=== PATIENT | female | born 1980 | race African-American/Black ===

== ENCOUNTER 2017-05-16 10:49 | Emergency (ER) | payer OTHER ==
[2017-05-16 10:54] VITALS: PULSE 55; TEMP 98.1; BMI 25.0
[2017-05-16] MEDS ORDERED: METHOCARBAMOL 500 MG TABLET PO ONE (11:15)
[2017-05-16] MEDS ORDERED: KETOROLAC TROMETHAMINE 30 MG/1 ML VIAL IM ONE (11:15)
[2017-05-16] MEDS ORDERED: KETOROLAC TROMETHAMINE 30 MG/1 ML VIAL IVPUSH ONE (11:19)
[2017-05-16] MEDS ORDERED: SODIUM CHLORIDE 1,000 ML IV STA (11:20)
[2017-05-16] MEDS ORDERED: KETOROLAC TROMETHAMINE 30 MG/1 ML VIAL ONE (11:20)
[2017-05-16] MEDS ORDERED: METHOCARBAMOL 500 MG TABLET ONE (11:20)
--- NOTE | 2017-05-16 11:53 | PDOC ---
History of Present Illness - General History Source: Patient Exam Limitations: No Limitations - History of Present Illness Initial Comments: 05/16/17 11:57 The patient is a 37 year old female, with no significant past medical history who presents to the emergency department with lower back pain. Patient states she was at work and bent down to lift a box of iphones. As she stood back up, patient experienced sharp lower back pain, 10/10 in severity. Patient denies any weakness, numbness, tingling. Patient denied any bowel/urine incontinence. She denies chest pain, headache or dizziness. She denies fever, chills, abdominal pain, nausea, vomit, diarrhea or constipation. She denies dysuria, frequency, urgency or hematuria. <Candice Harrison - Last Filed: 05/16/17 11:57> - General History Source: Patient Exam Limitations: No Limitations <Vahid Jarrett - Last Filed: 05/16/17 16:07> - General Chief Complaint: Back Pain Stated Complaint: FALL/LOWER BACK PAIN Time Seen by Provider: 05/16/17 10:53 Past History <Candice Harrison - Last Filed: 05/16/17 11:57> - Past Medical History Other medical history: denies - Suicide/Smoking/Psychosocial Hx Smoking History: Never smoked Have you smoked in the past 12 months: No Hx Alcohol Use: No Drug/Substance Use Hx: No Substance Use Type: Marijuana <Vahid Jarrett - Last Filed: 05/16/17 16:07> - Past Medical History Allergies/Adverse Reactions: Allergies Allergy/AdvReac Type Severity Reaction Status Date / Time acetaminophen [From Percocet] Allergy Hives Verified 05/16/17 10:51 oxycodone HCl [From Percocet] Allergy Hives Verified 05/16/17 10:51 Home Medications: Ambulatory Orders Acetaminophen [Tylenol] 650 mg PO Q4H PRN #20 tablet 05/16/17 Diazepam [Valium] 5 mg PO DAILY PRN #7 tablet MDD 1 05/16/17 Lidocaine 5% Patch [Lidoderm Patch -] 1 patch TP DAILY PRN #7 patch 05/16/17 Methocarbamol [Robaxin -] 500 mg PO BID PRN #14 tablet 05/16/17 Naproxen [Naprosyn -] 500 mg PO BID PRN #14 tablet 05/16/17 Review of Systems - Review of Systems Able to Perform ROS?: Yes Comments:: 05/16/17 11:57 GENERAL/CONSTITUTIONAL: No fever or chills. No weakness. HEAD, EYES, EARS, NOSE AND THROAT: No change in vision. No ear pain or discharge. No sore throat. CARDIOVASCULAR: No chest pain or shortness of breath. RESPIRATORY: No cough, wheezing, or hemoptysis. GASTROINTESTINAL: No nausea, vomiting, diarrhea or constipation. GENITOURINARY: No dysuria, frequency, or change in urination. MUSCULOSKELETAL: No joint or muscle swelling or pain. No neck or back pain. + lower back pain SKIN: No rash NEUROLOGIC: No headache, vertigo, loss of consciousness, or change in strength/ sensation. ENDOCRINE: No increased thirst. No abnormal weight change. HEMATOLOGIC/LYMPHATIC: No anemia, easy bleeding, or history of blood clots. ALLERGIC/IMMUNOLOGIC: No hives or skin allergy. <Candice Harrison - Last Filed: 05/16/17 11:57> *Physical Exam - Vital Signs Last Vital Signs Temp Pulse Resp BP Pulse Ox 98.1 F 55 L 20 119/65 100 05/16/17 10:51 05/16/17 10:51 05/16/17 10:51 05/16/17 10:51 05/16/17 10:51 - Physical Exam Comments: 05/16/17 11:58 GENERAL: Awake, alert, and fully oriented, in no acute distress HEAD: No signs of trauma EYES: PERRLA, EOMI, sclera anicteric, conjunctiva clear ENT: Auricles normal inspection, hearing grossly normal, nares patent, oropharynx clear without exudates. Moist mucosa NECK: Normal ROM, supple, no lymphadenopathy, JVD, or masses LUNGS: Breath sounds equal, clear to auscultation bilaterally. No wheezes, and no crackles HEART: Regular rate and rhythm, normal S1 and S2, no murmurs, rubs or gallops ABDOMEN: Soft, nontender, normoactive bowel sounds. No guarding, no rebound. No masses EXTREMITIES: Normal range of motion, no edema. No clubbing or cyanosis. No cords, erythema, or tenderness. +Tenderness to L paraspinal muscle proximately around L5 S1. No bony deformities. NEUROLOGICAL: Cranial nerves II through XII grossly intact. Normal speech, normal gait. SKIN: Warm, Dry, normal turgor, no rashes or lesions noted. <Candice Harrison - Last Filed: 05/16/17 11:57> - Vital Signs Last Vital Signs Temp Pulse Resp BP Pulse Ox 98.1 F 55 L 20 119/65 100 05/16/17 10:51 05/16/17 10:51 05/16/17 10:51 05/16/17 10:51 05/16/17 10:51 <Vahid Jarrett - Last Filed: 05/16/17 16:07> ED Treatment Course - Medications Given in the ED: ED Medications Discontinued Medications Generic Name Dose Route Start Last Admin Trade Name Freq PRN Reason Stop Dose Admin Ketorolac Tromethamine 30 mg 05/16/17 11:15 05/16/17 11:55 Toradol Injection - IM 05/16/17 11:16 Not Given ONCE ONE Ketorolac Tromethamine 30 mg 05/16/17 11:19 05/16/17 11:29 Toradol Injection - IVPUSH 05/16/17 11:20 30 mg ONCE ONE Administration Methocarbamol 500 mg 05/16/17 11:15 05/16/17 11:28 Robaxin - PO 05/16/17 11:16 500 mg ONCE ONE Administration <Candice Harrison - Last Filed: 05/16/17 11:57> Medical Decision Making - Medical Decision Making 05/16/17 11:53 A portion of this note was documented by scribe services under my direction. I have reviewed the details of the note, within reason, and agree with the documentation with the following case summary and management plan written by me. Patient treated in the ED. Nursing notes are reviewed and incorporated into the medical decision-making. Vital signs reviewed. Peripheral IV access obtained by the nurse, laboratory studies are drawn and sent, reviewed and interpreted by myself. Vital Signs Temp Pulse Resp BP Pulse Ox 98.1 F 55 L 20 119/65 100 05/16/17 10:51 05/16/17 10:51 05/16/17 10:51 05/16/17 10:51 05/16/17 10:51 37-year-old female patient with no past medical history presents with lower back pain. The patient was working picking up a box weighing approximately 30- 40 pounds. She felt her lower back give out and she felt severe lower back pain. Denies urinary bowel incontinence. Denies numbness. Was called 911 patient came to the ED. The patient has no bony tenderness and no neurological deficits. She does have a pretty severely tender left paraspinal muscle tenderness suggestive of back spasm. We'll attempt to control pain and give muscle relaxants. Patient reports that she is not . 05/16/17 15:59 Lumbar X-ray reveals no acute findings. Pt given naproxen, tylenol, robaxin, and valium with improvement in symptoms. Again, I suspect that this is muscle spasm. Despite discomfort, pt is ambulatory. Will have patient go home with her friend and have her follow up with PMD Return precautions given. I discussed the physical exam findings, ancillary test results and final diagnoses with the patient. I answered all of the patient's questions. The patient was satisfied with the care received and felt comfortable with the discharge plan and treatment plan. The patient will call their primary care physician within 24 hours to arrange follow-up and will return to the Emergency Department with any new, persistant or worsening symptoms. <Vahid Jarrett - Last Filed: 05/16/17 16:07> *DC/Admit/Observation/Transfer - Attestations Scribe Attestion: 05/16/17 11:58 Documentation prepared by Candice Harrison, acting as medical staff coordinator for Vahid Jarrett MD <Candice Harrison - Last Filed: 05/16/17 11:57> - Discharge Dispostion Admit: No <Vahid Jarrett - Last Filed: 05/16/17 16:07> Diagnosis at time of Disposition: Back spasm - Discharge Dispostion Disposition: HOME Condition at time of disposition: Improved - Prescriptions Prescriptions: Lidocaine 5% Patch [Lidoderm Patch -] 1 patch TP DAILY PRN #7 patch PRN Reason: Back Pain Naproxen [Naprosyn -] 500 mg PO BID PRN #14 tablet PRN Reason: Back Pain Methocarbamol [Robaxin -] 500 mg PO BID PRN #14 tablet PRN Reason: Muscle Spasm Acetaminophen [Tylenol] 650 mg PO Q4H PRN #20 tablet PRN Reason: Pain Diazepam [Valium] 5 mg PO DAILY PRN #7 tablet MDD 1 PRN Reason: Back Spasm - Referrals Referrals: STAFF,NOT ON [Primary Care Provider] - - Patient Instructions Printed Discharge Instructions: DI for Back Spasm Additional Instructions: Your lumbar spine radiograph is negative for fractures. Please take the medications as prescribed. It may take several days before your symptoms improve. Follow up with your doctor. - Post Discharge Activity Forms/Work/School Notes: Back to Work
[2017-05-16 12:08] LABS: URINE APPEARANCE CLEAR; URINE BILIRUBIN NEGATIVE (NEGATIVE); URINE BLOOD NEGATIVE (NEGATIVE); URINE COLOR STRAW; URINE GLUCOSE (UA) NEGATIVE (NEGATIVE); URINE KETONE NEGATIVE (NEGATIVE); URINE LEUK ESTERASE NEGATIVE (NEGATIVE); URINE NITRITE NEGATIVE (NEGATIVE); URINE PROTEIN NEGATIVE (NEGATIVE); URINE UROBILINOGEN NEGATIVE mg/dL (0.2-1.0)
[2017-05-16] MEDS ORDERED: diazePAM 5 MG TABLET PO ONE (12:42)
[2017-05-16] MEDS ORDERED: diazePAM 5 MG TABLET ONE (13:07)
[2017-05-16] MEDS ORDERED: LIDOCAINE 5% TOPICAL PATCH TP ONE (15:12)
[2017-05-16] MEDS ORDERED: ACETAMINOPHEN 1000 MG/100 ML VIAL (NON FORMULARY) IVPB ONE (15:15)
[2017-05-16] MEDS ORDERED: LIDOCAINE 5% TOPICAL PATCH ONE (15:25)
[2017-05-16 16:50] VITALS: BP 120/56
[2017-05-16] MEDS ORDERED: LIDOCAINE PATCH REMOVAL MC SCH (22:00)
== END 2017-05-16 16:47 | disposition home or self-care (01) ==
LOC: JER 10:49
PROC: 3E0337Z Introduction of Electrolytic and Water Balance Substance into Peripheral Vein, Percutaneous Approach (ICD-10-PCS; principal; 2017-05-16)
PROC: 3E033NZ Introduction of Analgesics, Hypnotics, Sedatives into Peripheral Vein, Percutaneous Approach (ICD-10-PCS; 2017-05-16)
PROC: 3E0333Z Introduction of Anti-inflammatory into Peripheral Vein, Percutaneous Approach (ICD-10-PCS; 2017-05-16)
DX: M62.830 Muscle spasm of back (principal); X50.0XXA Overexertion from strenuous movement or load, initial encounter; Y93.89 Activity, other specified; Y92.59 Other trade areas as the place of occurrence of the external cause; Y99.0 Civilian activity done for income or pay
CPT/HCPCS: 72100-TC; 81003; 84703; 99282-25